=== PATIENT | female | born 1935 | race Caucasian/White ===

== ENCOUNTER 2017-05-06 00:38 | Emergency (ER) | payer MEDICARE, MEDICAID ==
[~2017-05-06] VITALS: Ht 154.9 cm; Wt 81.6 kg
[2017-05-06 01:30] VITALS: BP 144/70
--- NOTE | 2017-05-06 01:52 | NUR ---
AFTER TRIAGING ANS KNOWING WHAT THE BP WAS, PT AND FAMILY STATE "WE WILL GO HOME AND IF ANYTHING COME BACK". PT DENIES CP/SOB.
== END 2017-05-06 01:55 | disposition left against medical advice (07) ==
LOC: ER 00:41
DX: R53.1 Weakness (principal); Z53.21 Procedure and treatment not carried out due to patient leaving prior to being seen by health care provider
CPT/HCPCS: A4606; J7040; Z7610